=== PATIENT | female | born 1965 ===

== ENCOUNTER 2017-02-06 19:29 | Emergency (ER) | payer BC ==
--- NOTE | 2017-02-06 19:53 | EDM.PDOC ---
ED HPI GENERAL MEDICAL PROBLEM - General Chief Complaint: ENT Problem Stated Complaint: nose bleed Time Seen by Provider: 02/06/17 19:40 Source of Information: Reports: Patient - History of Present Illness INITIAL COMMENTS - FREE TEXT/NARRATIVE: Pt states randomly her nose began bleeding earlier today and stopped spontaneously. However approx 2 hours ago the nose started bleeding again and pt describes it as gushing at times. Did not hold pressure. She states there was enough blood she swallowed she threw up one time. Onset: Today Severity: Mild Improves with: Reports: Other (direct pressure) Worsens with: Reports: None Associated Symptoms: Reports: No Other Symptoms Treatments [employer]: Reports: Other (see below) (pressure ) - Related Data Allergies Allergy/AdvReac Type Severity Reaction Status Date / Time bee venom protein (honey bee) Allergy Facial Verified 02/06/17 19:55 Swelling Home Meds: Home Meds Aspirin [Ecotrin] 81 mg PO DAILY 02/06/17 [History] Atenolol 25 mg PO DAILY 02/06/17 [History] Calcium Carbonate [Calcium] 500 mg PO Q3D 02/06/17 [History] Hydrochlorothiazide 25 mg PO DAILY 02/06/17 [History] Multivitamin [Multi-Day Vitamins] 1 each PO DAILY 02/06/17 [History] ED ROS ENT - Review of Systems Review Of Systems: See Below Constitutional: Reports: No Symptoms HEENT: Reports: No Symptoms Respiratory: Reports: No Symptoms Cardiovascular: Reports: No Symptoms : Reports: No Symptoms Neurological: Reports: No Symptoms Hematologic/Lymphatic: Reports: No Symptoms Immunologic: Reports: No Symptoms ED EXAM, ENT - Physical Exam Exam: See Below Exam Limited By: No Limitations General Appearance: Alert, WD/WN, No Apparent Distress Ears: Normal External Exam, Normal Canal Nose: No Blood, Dried Blood, Other (bleeding controlled with direct pressure ). No: Nasal Discharge, Nasal Swelling, Nasal Tenderness, Foreign Body, Septal Deformity, Septal Hematoma, Active Bleeding, Injected Turbinates Mouth/Throat: Normal Inspection, Normal Gums Head: Atraumatic, Normocephalic Neck: Normal Inspection, Supple Respiratory/Chest: No Respiratory Distress, No Accessory Muscle Use Cardiovascular: Normal Peripheral Pulses Skin: Warm, Dry, Intact Course - Vital Signs Last Recorded V/S: Last Vital Signs Temp 36.6 C 02/06/17 19:52 Pulse 87 02/06/17 19:52 Resp 16 02/06/17 19:52 BP 186/105 H 02/06/17 19:52 Pulse Ox 97 02/06/17 19:52 Departure - Departure Time of Disposition: 20:45 Disposition: Home, Self-Care 01 Condition: Good Clinical Impression: Bleeding from the nose - Discharge Information Instructions: Nosebleed Forms: ED Summary Discharge
== END 2017-02-06 20:24 | disposition home or self-care (01) ==
LOC: VM.ED 19:29
CPT/HCPCS: 99283